=== PATIENT | female | born 1945 | race Hispanic/Latino ===

== ENCOUNTER 2017-08-30 09:47 | Day surgery (SDC) | payer MEDICARE ==
[2017-08-30 10:40] LABS: Hematocrit 41.5 % (30.3-42.9); Hemoglobin 13.7 gm/dl (10.1-14.3); Mean Corpuscular HGB Conc 33 % (30-34); Mean Corpuscular Hemoglobin 29 pg (28-32); Mean Corpuscular Volume 87 fl (79-97); Platelet Count 225 K/mm3 (140-440); Red Blood Count 4.78 M/mm3 (3.65-5.03); Red Cell Distribution Width 14.4 % (13.2-15.2)
[2017-08-30 10:54] LABS: BUN/Creatinine Ratio 18; Blood Urea Nitrogen 11 mg/dL (7-17); Calcium 9.2 mg/dL (8.4-10.2); Hemolysis Index 1
[2017-08-30 10:57] LABS: INR 1.01 (0.87-1.13)
[2017-08-30] MEDS ORDERED: NACL 0.9% 1000 ML 1,000 ML IV SCH (11:00)
--- NOTE | 2017-08-30 11:05 | Anesthesia Day of Surgery ---
Anesthesia Day of Surgery - Day of Surgery Patient Examined: Yes Patient H&P Reviewed: Yes Patient is NPO: Yes
--- NOTE | 2017-08-30 11:05 | Anesthesia Consultation ---
Anesthesia Consult and Med Hx Date of service: 08/30/17 - Airway Anesthetic Teeth Evaluation: Good, Caps ROM Head & Neck: Adequate Mental/Hyoid Distance: Adequate Mallampati Class: Class II Intubation Access Assessment: Probably Good - Pre-Operative Health Status ASA Pre-Surgery Classification: ASA2 Proposed Anesthetic Plan: MAC - Cardiovascular System Hx Hypertension: Yes Hx Cardia Arrhythmia: Yes (a-fib) Hx Heart Murmur: Yes - Central Nervous System Hx Psychiatric Problems: Yes (depression) - Gastrointestinal Hx Ulcer: Yes - Other Systems Hx Cancer: No
[2017-08-30] MEDS ORDERED: DIPRIVAN 10 MG/ML IV ONE (12:30)
[2017-08-30 13:55] VITALS: BP 109/67
--- NOTE | 2017-08-31 00:55 | Discharge Summary ---
REASON FOR ELECTRICAL CARDIOVERSION: Atrial fibrillation and atrial flutter. PROCEDURES: Informed consent was first obtained for electrical cardioversion. With the patient in a supine position, electrode pads were applied over the anterior and posterior chest pimentel. Under continuous electrocardiographic monitoring, as well as monitoring of vital signs, the patient was then sedated by the anesthesiologist with intravenous propofol. After adequate sedation, a 200 joule synchronized shock was applied over the electrode pads. The patient promptly converted to normal sinus rhythm. The procedure was well tolerated with no obvious complications. JOB# [id number] SERA/NTS
== END 2017-08-30 15:15 | disposition home or self-care (01) ==
LOC: CATHLABREC 09:47 → EDSTATUS 12:00 → CATHLABREC 15:15
PROVIDERS: ATTEND Internal Medicine Cardiovascular Disease
DX: I48.91 Unspecified atrial fibrillation (principal); I48.92 Unspecified atrial flutter; I10 Essential (primary) hypertension; F32.9 Major depressive disorder, single episode, unspecified
CPT/HCPCS: 36415; 80048; 85027; 85610; 85730; 92960; 93005; 93010; 96374; J2704; J7030